=== PATIENT | female | born 1975 | race Caucasian/White ===

== ENCOUNTER 2016-10-27 15:44 | Emergency (ER) | payer OTHER ==
[~2016-10-27] VITALS: Ht 162.6 cm; Wt 68.0 kg
--- NOTE | ~2016-10-27 | EKG ---
[place] [address] [facility] [place] [address] ELECTROCARDIOGRAM REPORT Name: AMHET STANTON Room #: DEP TRE Mcneal#: [id number] Admission: 10/27/16 Attend Phys: Discharge: 10/27/16 Date of : 71 Report #: [id number] THIS REPORT FOR: //name// [facility] ED Test Date: 2016-10-27 Test Time: 15:50:06 Pat Name: AHMET STANTON Department: Room: Gender: F [employer] Supervisor: Francisca LUCERO : 1975 Requested By: Chen Kaufman Order Number: [id number] MD: Lanre Marcano Measurements Intervals [place] Rate: 79 P: 66 MI: 137 QRS: 50 QRSD: 92 T: 51 QT: 371 QTc: 426 Interpretive Statements Sinus rhythm No significant abnormality No previous ECG available for comparison Electronically Signed On 10-28-2016 7:37:26 [employer] by Lanre Marcano [email or web address] <ELECTRONICALLY SIGNED> By: Lanre Marcano MD, [facility] 10/28/16 0737 1550 1550 Lanre Marcano MD, FACC /EPI
[2016-10-27 16:11] LABS: ABSOLUTE NEUTROPHILS 5.1 thou/uL (1.4-8.2); BASOPHILS 0.7 % (0.0-2.0); EOSINOPHILS 1.2 % (0.0-3.0); HEMATOCRIT 42.6 % (37.0-47.0); HEMOGLOBIN 14.5 gm/dL (12.0-15.0); LYMPHOCYTES 26.3 % (24.0-44.0); MCH 31.2 pg (26.0-34.0); MCHC 34.2 % (28.0-37.0); MCV 91.2 fL (80.0-100.0); MONOCYTES 9.7 % (1.0-8.0); PLATELET COUNT 241 thou/uL (150-400); POLYS 62.1 % (36.0-66.0); RBC 4.67 mil/uL (4.20-5.00); RDW 12.4 % (10.5-14.5); WBC 8.3 thou/uL (4.0-11.0)
[2016-10-27 16:13] LABS: MANUAL DIFF NO
[2016-10-27 16:26] LABS: CREATININE 0.7 mg/dL (0.6-1.3); POTASSIUM 3.8 mmol/L (3.5-5.1)
[2016-10-27 16:27] LABS: CALCIUM 8.8 mg/dL (8.5-10.1); TOTAL BILIRUBIN 0.3 mg/dL (<0.1-1.0)
[2016-10-27 17:27] VITALS: BP 117/82
== END 2016-10-27 17:28 | disposition home or self-care (01) ==
LOC: ER 15:44
PROVIDERS: Nurse Practitioner Family
DX: I49.3 Ventricular premature depolarization (principal)